=== PATIENT | male | born 1945 ===

== ENCOUNTER 2023-01-04 07:50 | Day surgery (SDC) | payer MEDICARE, OTHER ==
[~2023-01-04 07:50] MED LIST: SODIUM CHLORIDE 0.9% 1,000 ML IV ONE; SODIUM CHLORIDE 0.9% 1,000 ML ONE
[2023-01-04] MEDS ORDERED: PROPOFOL 1% ISO-OSM 1000 MG/100 ML BOTTLE IV ONE (07:51)
[2023-01-04] MEDS ORDERED: LIDOCAINE/PF 2% 5 ML SYRINGE IVP ONE (07:51)
[2023-01-04] MEDS ORDERED: OXYGEN THERAPY IH SCH (10:00)
== END 2023-01-04 10:50 | disposition home or self-care (01) ==
LOC: SURGERY 07:50
PROVIDERS: ATTEND Specialist
DX: D12.3 Benign neoplasm of transverse colon (principal); K59.09 Other constipation; K64.0 First degree hemorrhoids; G30.9 Alzheimer's disease, unspecified; N18.6 End stage renal disease; I12.0 Hypertensive chronic kidney disease with stage 5 chronic kidney disease or end stage renal disease; D64.9 Anemia, unspecified; I69.351 Hemiplegia and hemiparesis following cerebral infarction affecting right dominant side
CPT/HCPCS: 45385; 88305; C1769; J2704; J3490; J7030